=== PATIENT | male | born 1950 | race Caucasian/White ===

== ENCOUNTER 2017-07-28 10:38 | Inpatient (IN) ==
[2017-07-28] MEDS ORDERED: NS 1,000 ML IV ONE ×2 (11:18→13:13)
[2017-07-28 11:29] LABS: MANUAL DIFF NEEDED? NO
--- NOTE | 2017-07-28 11:51 | Diag Imaging Result Doc PS360 ---
EXAM: CHEST-PORTABLE INDICATION: weakness TECHNIQUE: One view COMPARISON: 01/22/2016 FINDINGS: The lungs are grossly clear. There is no discrete pleural fluid collection or pneumothorax. There are stable CABG changes. The cardiomediastinal silhouette and central vasculature are essentially unremarkable, otherwise. IMPRESSION: No evidence of acute pathology by plain radiograph. Electronically signed by Rigoberto Matute 07/28/2017 11:49 AM
[2017-07-28 11:57] LABS: BASO% 0.2 % (0.0-0.8); EOS# 0.07 X1000 (0.0-0.7); EOS% 0.5 % (0.0-10.0); HEMATOCRIT 26.7 % (42.0-52.0); HEMOGLOBIN 8.9 g/dL (14.0-18.0); IMM GRAN# 0.04 X1000 (0.0-0.04); IMM GRAN% 0.3 % (0.0-0.5); LYMPH% 16.1 % (20.5-51.1); MCH 30.6 PG (27-31); MCHC 33.3 g/dL (33-37); MCV 91.8 FL (81-99); MONO% 3.8 % (1.7-9.3); NEUT% 79.1 % (42.2-75.2); PLT 263 X1000 (130-400); RBC 2.91 XMIL (4.7-6.1)
[2017-07-28 11:59] LABS: ALBUMIN 4.3 g/dL (3.5-5.0); MAGNESIUM 2.2 mg/dL (1.5-2.7); POTASSIUM 5.1 mmol/L (3.5-5.1); TOTAL BILIRUBIN 0.2 mg/dL (0.20-1.00); TOTAL PROTEIN 6.6 g/dL (6.3-8.3)
[2017-07-28] MEDS ORDERED: PROTONIX IV ONE (13:00)
[2017-07-28] MEDS ORDERED: SODIUM CHLORIDE 0.9% INJ ONE (13:00)
--- NOTE | 2017-07-28 13:37 | PROVIDER DOCUMENTATION ---
This chart was entered by Rona Macdonald Scribe, acting as scribe for Driss Glez MD. HPI-Abdominal Pain/GI Problem - General Chief Complaint: GI Bleed Stated Complaint: WEAKNESS Time Seen by Provider: 07/28/17 10:54 Source: patient Allergies/Adverse Reactions: Patient Allergies Allergy/AdvReac Type Severity Reaction Status Date / Time No Known Allergies Allergy Verified 07/28/17 11:24 Home Medications: Home Medication List Medication Instructions Recorded Confirmed Last Taken Type ATORVAstatin [Lipitor] 40 mg PO DAILY 07/28/17 07/28/17 Unknown History Carvedilol 12.5 mg PO BID 07/28/17 07/28/17 Unknown History Clopidogrel [Plavix] 75 mg PO DAILY 07/28/17 07/28/17 Unknown History Hydrocodone Bit/Acetaminophen 1 each PO Q8HR 07/28/17 07/28/17 Unknown History [Hydrocodon-Acetaminoph 7.5-325] Lisinopril 10 mg PO DAILY 07/28/17 07/28/17 Unknown History Mirtazapine 30 mg PO DAILY 07/28/17 07/28/17 Unknown History Prazosin [Minipress] 1 mg PO QHS 07/28/17 07/28/17 Unknown History Pregabalin [Lyrica] 50 mg PO TID 07/28/17 07/28/17 Unknown History Trazodone [Desyrel] 100 mg PO BID 07/28/17 07/28/17 Unknown History - History of Present Illness-ABD Nature of Presenting Problems: Pt is a 67 y/o M presents to the ED with abdominal pain and dark stool. Pt states symptoms started last night. Pt states nausea and denies vomit. Pt states he is on a blood thinner. Pt denies hx of dark stool prior. Pt states lightheadedness with standing. Pt states generalized weakness. Abdominal Pain Onset Location: reports: generalized abdomen Pain Radiation: reports: no radiation Quality of Pain: reports: aching Severity in ED: reports: mild Onset/Duration: reports: last night Timing: reports: still present Activities at Onset: reports: light activity Modifying Factors: improves with: nothing Associated Symptoms: reports: nausea, weakness, other (lightheadedness). denies : anxiety, arm pain, back/neck pain, chest pain, constipation, cough, diaphoresis, diarrhea, dizziness, EENT symptoms, fatigue, fever/chills, genitourinary problems, headaches, heartburn, joint pain, loss of appetite, malaise, muscle aches, sinus congestion/drainage, rash, seizure, shortness of breath, sensory/motor loss, pain with inspiration, swelling/mass in abdomen, syncope, vomiting, trouble walking Last BM: last night Dark Stools Present?: reports: tarry Rectal Bleeding: reports: none Rectal Pain: reports: none Emesis Description: reports: none Bruising or Bleeding Gums?: No Similar Symptoms Previously?: Yes (present since last night ) Recently seen or treated by another doctor?: No Review of Systems - Adult - REVIEW OF SYSTEMS - ADULT Constitutional: reports: no symptoms reported Eyes: reports: no symptoms reported Ears, Nose, Mouth & Throat: reports: no symptoms reported Cardiovascular: reports: no symptoms reported Respiratory: reports: no symptoms reported Gastrointestinal: reports: abdominal pain (generalized), nausea, other (black stool). denies: diarrhea, vomiting Genitourinary: reports: no symptoms reported Musculoskeletal: reports: muscle weakness. denies: back pain, joint pain, neck pain Integumentary: reports: no symptoms reported Neurological: reports: no symptoms reported Psychiatric: reports: no symptoms reported Endocrine: reports: no symptoms reported Hematologic/Lymphatic: reports: no symptoms reported Allergic/Immunologic: reports: no symptoms reported All Other Systems: Reviewed and Negative Past History - Adult - PAST MEDICAL HISTORY-ADULT Review of Records: reports: Nursing Assessment Review, Medications Reviewed, Social history reviewed & non-contributory. Major Childhood Illnesses: reports: denies history Cardiovascular: reports: HTN Respiratory: reports: denies history Gastrointestinal: reports: denies history Obstetrical/Gynecological: reports: denies history Genitourinary: reports: denies history Musculoskeletal: reports: other (neuropathy) Neurological: reports: denies history Endocrine/Immune: reports: denies history Other Conditions: reports: denies history - PRIOR SURGERIES/PROCEDURES Surgical/Procedure History: reports: hernia repair, back/neck - IMMUNIZATION STATUS Childhood Immunizations: See Nurse Assessment Flu Vaccine: See Nurse Assessment - FAMILY HISTORY Family History: reviewed, not pertinent - SOCIAL HISTORY Smoking: cigarettes, less than 1 pack/day Provider spent 3-5 mins advising pt. on dangers of tobacco.: Discussed manners to quit use, and f/u contacts for add'l counseling. Substance Use: alcohol Alcohol Use Frequency: occasionally Number of drinks per typical drinking period:: 3-4 drinks Living Situation: family Physical Exam-General - PHYSICAL EXAM-ADULT Initial Vital Signs Reviewed: Yes - CONSTITUTIONAL General Appearance: alert, no apparent distress. negative: lethargic, slow to respond - EYES Eyes: PERRL/EOMI. negative: pale conjunctivae, sunken eyes - HEAD, EARS, NOSE, MOUTH & THROAT HENMT: normocephalic/atraumatic, moist mucous membranes - NECK Neck: normal inspection. negative: lymphadenopathy, tender lateral - RESPIRATORY Respiratory: chest non-tender, lungs clear, normal breath sounds. negative: crackles, rhonchi, increased rate - CARDIOVASCULAR Cardiovascular: regular rate, rhythm. negative: tachycardia, systolic murmur - GASTROINTESTINAL (ABDOMEN) Abdominal Exam: normal bowel sounds, soft, tenderness (generalized). negative: guarding, rebound - GENITOURINARY Rectal Exam: black stool. negative: hemorrhoids, mass - LYMPHATIC Lymphatic: no adenopathy. negative: enlargement, streaking - MUSCULOSKELETAL Back Exam: normal inspection. negative: ecchymosis, swelling Extremity: normal range of motion, normal inspection. negative: deformity, erythema - SKIN Integumentary: normal turgor, warm/dry, pallor. negative: diaphoresis, ecchymosis, erythema, laceration(s), rash - NEUROLOGIC Neurologic: grossly normal. negative: aphasia, facial droop - PSYCHIATRIC Psych/Mental Status: normal mood/affect, oriented x 3. negative: paranoid, tearful Progress - PLAN OF CARE/RESULTS Progress/Plan/Lab Results: Vital Signs - 8 hr 07/28/17 11:05 Temperature 97.3 F L Pulse Rate 106 H Respiratory Rate 20 Blood Pressure 105/63 O2 Sat by Pulse Oximetry 100 Result Diagrams: 07/28/17 10:53 07/28/17 10:53 - EKG 1 Time of EKG reading by physician:: 10:48 EKG Read and Signed by:: Lucrecia Glez EKG Interpretation (*Must complete 3 of following elements*): Abnormal ( possible lateral infarct, age undetermined; inferior infarct, age undetermined) Rate: 112 Rhythm: sinus tachycardia Comments: possible left atrial enlargement; - XRAY 1 XRAY Study: Chest Impression: Normal XRAY Interpretation: No evidence of acute pathology by plain radiograph - CONSULTS/PCP/HOSPITALIST Notification #1 *Consult/PCP/Hospitalist*: CHRISSIE Garcia for Hospitalist Time Discussed: 12:59 (Dr. Mota ) Reason/Comments: Dr. Glez consulted with FRANCIE Garcia about Pt Consult Disposition: Admit Departure - Departure Date of Disposition Decision: 07/28/17 Time of Disposition Decision: 13:00 DIAGNOSIS: GI bleed, Symptomatic anemia Disposition: ADMITTED INPATIENT 09 Certified Medical Emergency: Emergent Condition: Stable Referrals and Follow-Ups: Andres Meyers DO [Primary Care Provider] - - Critical Care Note This patient required my direct & personal management of CC.: Yes Total Time (mins): 30 Critical Care Statement: This patient required my direct personal management to treat or rule out processes, the absence of which, could potentiallly result in sudden, clinically significant life or limb threatening deterioration. Attestation - Physician/ ALEX Attestation Patient care was provided by Advanced Practice Provider:: No The physician spent face to face time with patient:: Yes Advanced Practice Provider documentation review:: Supervising physician onsite and consulted in the evaluation and care of this patient. The physician did have a face to face encounter with the patient. This chart was documented by the indicated scribe, (Rona Macdonald Scribe) and accurately reflects the services I performed and decisions made by me, Lucrecia Glez MD, as attested by the provider's signature.
[2017-07-28] MEDS ORDERED: CARAFATE LIQUID PO SCH (14:00)
--- NOTE | 2017-07-28 14:23 | Diag Imaging Result Doc PS360 ---
EXAM: KUB ABDOMEN INDICATION: gib TECHNIQUE: One view COMPARISON: None. FINDINGS: There are nonspecific bowel gas and stool patterns. There are a few loops of small bowel that are mildly distended with gas at the left side of the abdomen. There are nonspecific. There is no definite large volume free abdominal gas given the limitations of a supine radiograph. There is no evidence of organomegaly. IMPRESSION: Nonspecific mild gaseous distention of a few loops of small bowel as described. Electronically signed by Rigoberto Matute 07/28/2017 2:21 PM
--- NOTE | 2017-07-28 16:44 | HISTORY AND PHYSICAL ---
PRIMARY CARE PROVIDER: Dr. Meyers. CHIEF COMPLAINT: Black tarry stools, lightheadedness. HISTORY OF PRESENT ILLNESS: Mr. Cb Roberts is a 67-year-old male with a medical history of coronary artery disease status post CABG, peripheral arterial disease status post right femoral artery stents, COPD, obstructive sleep apnea, GERD, and hypertension, who apparently also drinks around 2-4 cans of beers per day. He states that yesterday he became very nauseated, started having abdominal cramps, and ended up having a black tarry stool that was very foul smelling. He also had some dizziness and lightheadedness with shortness of breath every time he stood and experienced some chills. Workup revealed that his hemoglobin and hematocrit are 8.9 and 26.7. He had orthostasis when vital signs were check for orthostasis, to the point that his systolic would drop down to the 70s and his heart rate would jump up to the 120s. He has a negative abdominal x-ray for now. We will order an abdominal CT and consult gastroenterology for a planned EGD tomorrow. PAST MEDICAL HISTORY: Coronary artery disease, COPD no home oxygen or breathing treatments, obstructive sleep apnea but does not wear CPAP, GERD, hypertension. PAST SURGICAL HISTORY: Right femoral arterial stents in January 2016 which is when he was started on Plavix, CABG, carpal tunnel surgery on the right wrist, left elbow nerve surgery, cervical spine surgery, lower back surgery x2, and tonsillectomy. SOCIAL HISTORY: Smokes a half pack per day or more since age of 12. Drinks anywhere from 1-4 cans of beer every day. He volunteers or works at the [employer]. FAMILY HISTORY: Brother had a heart attack at age 49, sister 67 but of unknown complications at a hospital. Mother had multiple myeloma but at the age of 91. Father had arthritis and at the age of 50. REVIEW OF SYSTEMS: Fourteen point review of systems were complete and all were negative except for those mentioned in the above HPI. He also has complaints of sinus drainage. ALLERGIES: No known drug allergies. HOME MEDICATIONS: Lipitor 40 mg p.o. daily, Coreg 12.5 mg p.o. twice daily, Plavix 75 mg p.o. daily, hydrocodone acetaminophen 7.5/325 one tablet p.o. every 8 hours, lisinopril 10 mg p.o. daily, mirtazapine 30 mg p.o. daily, Minipress 1 mg p.o. nightly, Lyrica 50 mg p.o. 3 times daily, and trazodone 100 mg p.o. twice daily. PHYSICAL EXAMINATION: VITAL SIGNS: Temperature is 97.3 degrees, heart rate 107, respiratory rate 18, blood pressure 105/47, O2 saturation 98% on 2 L nasal cannula, 5 feet 7 inches tall, 135 pounds , BMI 21.1. Orthostatic vital signs: Supine heart rate 107, blood pressure 93/57. Standing heart rate 121, blood pressure 77/50. Sitting heart rate 110, blood pressure 79/56. GENERAL: Mr. Cb Roberts is a 67-year-old male. He is able answer questions appropriately. He is in no acute distress. NECK: Trachea midline. CARDIOVASCULAR: S1, S2. Tachycardic rate and rhythm. No rubs, gallops, or murmurs. No JVD or carotid bruits noted. Trace lower extremity edema. There are +2 dorsalis and radial pulses. PULMONARY: Clear to auscultate in the upper lobes anteroposteriorly but in the bases is mildly coarse. He has no accessory muscle use or work of breathing noted. He is on 2 L nasal cannula. GI: Soft, nontender, nondistended. Positive bowel sounds x4. EXTREMITIES: Moves all extremities equally. NEUROLOGIC: A O x4. No sensory loss. Cranial nerves intact. He is oriented. SKIN: Warm, dry, intact, and pale. LABORATORY DATA: White blood cells 13,000, hemoglobin 8.9, hematocrit 26.7, platelet count 263,000. Sodium 134, potassium 5.1, BUN 90, creatinine 1.6, glucose 129, magnesium 2.2, bilirubin 0.20, AST 13, ALT 9. ProBNP 633. CK 23. IMAGING: Chest x-ray: No acute findings. Abdominal x-ray: Nonspecific mild gaseous distention of a few loops of small bowel. ASSESSMENT AND PLAN: 1. Upper gastrointestinal bleed without history of upper gastrointestinal bleed and no history of peptic ulcer disease. He takes Plavix at home for the right femoral arterial stents that he has had since January of 2016. Drinks beer on a daily basis, anywhere from 2- 4. Denies any other medications that is harsh on the stomach lining. States that last night he woke up, had stomach cramps, felt very nauseated, and had a bowel movement that was black and tarry. Has been having some dizziness and lightheadedness with shortness of breath since yesterday and when he was checked he had orthostasis. He is not significantly anemic but it is enough for blood transfusion. Will consult gastroenterology, plans for EGD in the morning. We will do clear liquids today and NPO after midnight. Continue with the Protonix drip and oral Carafate. 2. Acute blood loss anemia secondary to upper gastrointestinal bleed. Goal hematocrit is greater than [address] Preston. We will transfuse 1 unit of packed red blood cells. He also wants a platelet aggregate to check for platelet function secondary to the use of Plavix, which we are currently going to hold. 3. Acute kidney injury. He will receive IV fluid hydration. We will recheck in the morning, BUN and creatinine. 4. Coronary artery disease status post coronary artery bypass graft. We will have to hold all antihypertensives for now. Denies any chest pain. 5. Hypertension. Currently he is dealing with orthostatic hypotension. Will hold all antihypertensives and hopefully this will improve with blood transfusion. We can start orthostatic vital signs tomorrow afternoon. 6. Gastroesophageal reflux disease. Continue proton pump inhibitor. 7. Obstructive sleep apnea and chronic obstructive pulmonary disease. No exacerbation and does not wear CPAP at home. Dictated by CHRISSIE Moscoso for Russell Bentley MD Addendum: Patient seen and examined my myself. Agree with CHRISSIE note. It reflects my assessment and plan. Patient admitted for GI bleeding. H/H stable at the time of admission. Will send this patient to ICU and consult GI for emergent endoscopy. Will monitor H/H q6hrs. Will start also Protonix drip. Regarding KRISTA will provide IV lfuids as well. Will hold all antihypertensive medications. Will monitor this patient closely. cc: CHRISSIE Moscoso MD Thomas E. Lockard, DO MTDD
[2017-07-28 17:01] LABS: INR 0.99; PROTIME 10.4 Seconds (9.2-11.7)
--- NOTE | 2017-07-28 17:36 | Diag Imaging Result Doc PS360 ---
EXAM: CT ABDOMEN/PELVIS W/O CONTRAST INDICATION: upper gib TECHNIQUE: Dose reduction protocol was used. COMPARISON: None. FINDINGS: There are a few calcified granulomata in the spleen. There is a calcified stone in the lumen of the gallbladder. The gallbladder appears normal, otherwise. The liver, pancreas, and adrenal glands are unremarkable. There are a few tiny nonobstructing intrarenal stones bilaterally with more on the right. There are no ureteral stones and no hydronephrosis. The urinary bladder is distended and is essentially unremarkable, otherwise. There is uncomplicated sigmoid diverticulosis coli. There are several mildly prominent fluid-filled loops of small bowel with air-fluid levels. The stomach is mildly distended. This is nonspecific. It is probably related to ileus. I suppose a low-grade obstruction is possible. The GI tract is essentially unremarkable, otherwise. There is a prominent left inguinal hernia that contains only fat. There is extensive aortoiliac atherosclerotic disease but there is no evidence of aortic aneurysm. No focal inflammatory changes, free abdominal gas, or free fluid is appreciated. IMPRESSION: 1.A few mildly prominent loops of small bowel and a mildly distended stomach as described that are nonspecific. Please see above discussion. 2.Cholelithiasis. 3.Nonobstructive nephrolithiasis. 4.Other incidental/nonacute findings detailed above. Electronically signed by Rigoberto Matute 07/28/2017 5:34 PM
[2017-07-28 18:26] LABS: HEMATOCRIT 23.8 % (42.0-52.0); HEMOGLOBIN 7.9 g/dL (14.0-18.0)
--- NOTE | 2017-07-28 18:27 | CONSULTATION ---
DATE OF CONSULTATION: 07/28/2017 REFERRING PHYSICIAN: Dr. Portillo PRIMARY CARE DOCTOR: Andres Meyers REASON FOR CONSULTATION: Melena. HISTORY OF PRESENT ILLNESS: Mr. Roberts is a 67-year-old male who was admitted today for melena, lightheadedness. The patient has a history of peripheral arterial disease, is status post right femoral stenting 2 years ago at [facility], history of coronary disease, has COPD, obstructive sleep apnea. He also takes blood thinner, as well as aspirin 81 mg a day, and Plavix 75 mg every day. He noted abdominal discomfort yesterday, along with change in color of stools. He felt weak and dizzy, and seen in the ER. His hemoglobin and hematocrit were 8.9 and 26.7. He was positive for orthostatic hypotension. In the ER, he has been getting 1 unit of blood. He is getting fluids, which have helped his symptoms. He complains of dry heaving and nausea. He has never had an EGD done in the past. He had a colonoscopy done 2 years ago at [facility]. PAST MEDICAL HISTORY: 1. Coronary artery disease. 2. COPD. 3. Obstructive sleep apnea. 4. GERD. 5. Hypertension. 6. Peripheral arterial disease. 7. Chronic smoker. PAST SURGERY HISTORY: 1. Right femoral arterial stent in January 2016, started on Plavix. 2. CABG. 3. Carpal tunnel surgery in the right wrist. 4. Left elbow neurosurgery. 5. Cervical spine surgery. 6. Lower back surgery x2. 7. Tonsillectomy. SOCIAL HISTORY: He smokes half a pack a day for more than 40 years. He drinks 1 to 4 cans of beer every day. 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 FAMILY HISTORY: Brother had a heart attack age 49. Sister 67, of unknown complications in a hospital. Mother had multiple myeloma, age 91. Father had arthritis and age 50. REVIEW OF SYSTEMS: Denies any current fevers, rigors, chills, chest pain, shortness of breath, dyspnea at rest. Denies any genitourinary complaints or neurologic complaints. Does have history of arthritis, and denies any vomiting blood. Did notice dark stools, black in color. Denies noticing any fresh blood in the stools. Denies any nosebleeds or gum bleeding. ALLERGIES: No known drug allergies. MEDICATIONS IN THE HOSPITAL: Include: 1. IV fluids 75 mL/hour. 2. Protonix drip. 3. Carafate 1 g 6 hours. 4. Fluticasone 50 mcg 2 sprays in b.i.d. DIET: He is currently on clear-liquid diet. His aspirin and Plavix have been withheld. OBJECTIVE: Vital signs: Temperature of 98.4 degrees, pulse rate of 107, respiratory rate of 22, blood pressure 101/50, saturating 100% room air. Body weight of 135 pounds, BMI 21.1 k/m2. General Appearance: Thinly built, lying in bed, in no acute distress. HEENT: Pale conjunctivae. No icterus. Pupils equal, react to light. Neck: Supple. Chest: Decreased Breath sounds at the bases. CVS: Tachycardic. Abdomen: Mild discomfort. There is no rebound or guarding. Bowel sounds are present. No hepatosplenomegaly. Extremities: No cyanosis, clubbing, and edema. Neurologic: Alert, awake, oriented. LABORATORIES: Hemoglobin and hematocrit are 8.9 and 26.7, white count of 13.02 , platelet count of 263,000. INR 0.99, PT of 10.4, PTT of 25, INR 0.99. Sodium 132, potassium 5.1 , chloride 101, bicarb 18, anion gap 16, BUN of 90, creatinine 1.6, glucose of 129, calcium 9, magnesium 2.2. Total bilirubin is 0.2, AST 13, ALT 9, alkaline phosphatase is 59. Total protein 6.6, albumin of 4.3. IMAGIN. Abdominal x-ray showing nonspecific mild gaseous distention of a few loops of small bowel. 2. Chest x-ray: No evidence of acute pathology on plain x-ray. 3. CT chest and CT of abdomen and pelvis were done. Findings are currently pending. IMPRESSION/PLAN: 1. Melena. 2. Anemia, secondary to melena. 3. Coronary artery disease, status post coronary artery bypass graft. 4. Peripheral artery disease, status post right-sided femoral stent, on aspirin and Plavix which have been held. 5. Acute kidney injury. 6. Hypertension. 7. Chronic smoker. 8. Daily use of alcohol. 9. Obstructive sleep apnea. 10. Gastroesophageal reflux disease. RECOMMENDATIONS: 1. Will keep a close eye on the patient's vitals and labs. Will check an hemoglobin and hematocrit every 6 hours for 24 hours. We will type and cross, transfuse to keep hematocrit more than 27%. The patient to continue to get IV PPIs, IV fluids, IV antiemetics. We will schedule the patient for EGD in the morning under anesthesia. Because of the patient's use of Plavix, his risk of rebleeding is high. We will check the platelet aggregation study. 2. The patient was counseled to quit alcohol and smoking completely. 3. The patient was also recommended to avoid use of NSAIDs at home. 4. Because of multiple medical comorbid conditions, the patient's risk of the procedure, including EGD, is slightly higher. I discussed that with the patient's family at bedside. The procedure of EGD was explained to the patient and family at bedside, including the risks, benefits, indications, alternatives. 5. Further recommendations to follow, pending hospital course. cc: MD Dr. Nakul Jacobs, DO [place]
[2017-07-28 18:47] LABS: COLLAGEN/ADP PLT AGG 113 Seconds (65-124); COLLAGEN/EPI PLT AGG > 210 Seconds (87-172)
[2017-07-28] MEDS ORDERED: TYLENOL PO PRN (20:39)
[2017-07-28] MEDS ORDERED: ATROVENT NEB INH PRN (20:39)
[2017-07-28] MEDS ORDERED: ZOFRAN IV PRN (20:39)
[2017-07-28] MEDS ORDERED: XOPENEX NEB INH PRN (20:39)
[2017-07-28] MEDS: PROTONIX 80 MG in NS 80 ML IV SCH (21:11)
[2017-07-28] MEDS: NORCO-7.5 PO SCH (23:14)
[2017-07-28] MEDS: LYRICA PO SCH (23:14)
[2017-07-28] MEDS: DESYREL PO SCH (23:16)
[2017-07-29] MEDS ORDERED: NS 250 ML ONE (00:01)
[2017-07-29 02:02] LABS: URINE CULTURE NEEDED? NO; URINE MICRO REVIEW NEEDED? NO; URINE SOURCE CLEAN CATCH
[2017-07-29 02:04] LABS: BILIRUBIN URINE NEGATIVE (NEGATIVE); BLOOD URINE NEGATIVE (NEGATIVE); COLOR YELLOW; GLUCOSE URINE NEGATIVE (NEGATIVE); LEUKOCYTES URINE NEGATIVE (NEGATIVE); NITRITE URINE NEGATIVE (NEGATIVE); PH URINE 5.5; PROTEIN URINE NEGATIVE (NEGATIVE); SP GRAVITY URINE 1.017; TURBIDITY URINE CLEAR (CLEAR); UROBILINOGEN URINE NORMAL (NORMAL)
[2017-07-29 02:05] LABS: UR EPITHELIAL CELLS <10 /HPF (<10); URINE BACTERIA NEGATIVE /HPF; URINE RBC <10 /HPF (<10); URINE WBC <10 /HPF (<10)
[2017-07-29] MEDS: CARAFATE LIQUID PO SCH ×5 (03:12→21:02)
[2017-07-29] MEDS: NORCO-7.5 PO SCH ×3 (04:28→20:32)
[2017-07-29 05:00] LABS: MANUAL DIFF NEEDED? NO
[2017-07-29 05:14] LABS: INR 1.03; PROTIME 10.8 Seconds (9.2-11.7); PTT 25.4 Seconds (22.0-36.0)
[2017-07-29] MEDS: PROTONIX 80 MG in NS 80 ML IV SCH ×3 (05:25→16:40)
[2017-07-29 05:36] LABS: AGAP 11; ALBUMIN 3.7 g/dL (3.5-5.0); ALKALINE PHOSPHATASE 44 U/L (32-122); BUN 53 mg/dL (8-22); CALCIUM 8.3 mg/dL (8.8-10.2); CHLORIDE 108 mmol/L (98-107); COSMO 293; GOT 14 U/L (10-34); GPT 9 U/L (10-44); MAGNESIUM 2.2 mg/dL (1.5-2.7); POTASSIUM 4.5 mmol/L (3.5-5.1); SODIUM 140 mmol/L (136-145); TCO2 21 mmol/L (25-35); TOTAL PROTEIN 5.3 g/dL (6.3-8.3)
[2017-07-29 05:56] LABS: BASO% 0.3 % (0.0-0.8); EOS# 0.05 X1000 (0.0-0.7); EOS% 0.6 % (0.0-10.0); HEMATOCRIT 28.4 % (42.0-52.0); HEMOGLOBIN 9.6 g/dL (14.0-18.0); IMM GRAN# 0.02 X1000 (0.0-0.04); IMM GRAN% 0.3 % (0.0-0.5); LYMPH# 2.32 X1000 (1.2-3.4); LYMPH% 29.1 % (20.5-51.1); MCH 30.7 PG (27-31); MCHC 33.8 g/dL (33-37); MCV 90.7 FL (81-99); MONO# 0.58 X1000 (0.11-0.59); MONO% 7.3 % (1.7-9.3); MPV 11.7 FL (7.4-10.4); NEUT% 62.4 % (42.2-75.2); PLT 164 X1000 (130-400); RBC 3.13 XMIL (4.7-6.1)
--- NOTE | 2017-07-29 06:03 | EKG Report ---
Test Performed on : 07/28/2017 10:48:45 AM Test Reason : reordered/cp Blood Pressure : / mmHG Vent. Rate : 112 BPM Atrial Rate : 112 BPM P-R Int : 160 ms QRS Dur : 088 ms QT Int : 322 ms P-R-T Axes : 069 027 090 degrees QTc Int : 439 ms Sinus tachycardia. Possible Left atrial enlargement Possible Lateral infarct , age undetermined Inferior infarct , age undetermined Abnormal ECG When compared with ECG of 22-JAN-2016 21:01, Borderline criteria for Lateral infarct are now present Inferior infarct is now present T wave inversion no longer evident in Anterior leads Unconfirmed Result
--- NOTE | 2017-07-29 07:36 | EKG Report ---
Test Performed on : 07/29/2017 07:12:25 AM Test Reason : chest pain Blood Pressure : / mmHG Vent. Rate : 092 BPM Atrial Rate : 092 BPM P-R Int : 184 ms QRS Dur : 096 ms QT Int : 360 ms P-R-T Axes : 074 031 108 degrees QTc Int : 445 ms Sinus rhythm. with occasional premature ventricular complexes. Nonspecific T wave abnormality Abnormal ECG When compared with ECG of 28-JUL-2017 10:48, (Unconfirmed) premature ventricular complexes. are now present Borderline criteria for Lateral infarct are no longer present Criteria for Inferior infarct are no longer present Confirmed by Lindsey SALGADO, Fam Duff ([id number]) on 07/29/2017 5:00:59 PM
--- NOTE | 2017-07-29 09:48 | PROGRESS NOTE ---
DATE: 07/29/2017 SUBJECTIVE: The patient reports no more episodes of melena. He denies any chest pain, sensation of palpitation, dizziness, or lightheadedness. OBJECTIVE: Vital Signs: Temperature 97.9 degrees, heart rate 80, respiratory rate 18, blood pressure 130/68, O2 saturation 99% on room air. General: This is a 67-year-old male, lying in bed, in no acute distress. HEENT: Head is normocephalic, atraumatic. Anicteric sclerae and pale conjunctivae. Mucous membranes moist. Neck: Supple. No JVD noted. No carotid bruits. No lymphadenopathy. No thyromegaly. Cardiovascular: S1, S2 heard. No murmurs, gallops, or rubs. Regular rate and rhythm. Respiratory: There is decreased breath sounds globally. Patient is not using any accessory muscles or having work of breathing. Abdomen: Soft, nontender to palpation. Bowel sounds present. No organomegaly. Extremities: No clubbing, cyanosis, or edema. Peripheral pulses present in both legs. Neurological: Patient is alert and oriented x3. Moves 4 extremities. Cranial nerves grossly normal. LABORATORY DATA: White cell count 7.9, hemoglobin 9.6, hematocrit 28.4, platelets 164,000. BMP is shows there is unremarkable except BUN 53. ASSESSMENT AND PLAN: 1. Upper gastrointestinal bleed. Patient denied any more episodes of bleeding. Hemoglobin has dropped overnight, and he was transfused 2 units of blood. So far, the hemoglobin today is 9.6. Dr. Preston from GI has evaluated this patient. Help appreciated. The plan is to do EGD this morning under anesthesia. Because he is on Plavix, platelet-aggregation study has been ordered too. We will see what that exam shows. 2. Anemia of acute blood loss secondary to gastrointestinal bleeding. The patient got transfused 2 units of blood, and hemoglobin is as above. 3. Acute kidney injury most likely related to dehydration, that has completely resolved. 4. Coronary artery disease status post coronary artery bypass graft. All antihypertensive medication has been held for today. We will continue to monitor this patient here in the intensive care unit. 5. Gastroesophageal reflux disease. We will continue with Protonix. 6. Obstructive sleep apnea. Aware. 7. Subclinical chronic obstructive pulmonary disease. The patient is on breathing treatments p.r.n. for shortness of breath. Patient has not been officially diagnosed with this condition. Will recommend to have a pulmonary evaluation as an outpatient. cc: Russell Bentley MD
[2017-07-29] MEDS: DESYREL PO SCH ×2 (10:26→20:33)
[2017-07-29] MEDS: REMERON SOLTAB PO SCH (10:27)
[2017-07-29] MEDS: LIPITOR PO SCH (10:27)
[2017-07-29] MEDS: LYRICA PO SCH ×3 (10:27→16:40)
[2017-07-29] MEDS: FLONASE NAS SCH ×2 (10:27→20:31)
[2017-07-29 10:58] LABS: HEMATOCRIT 29.8 % (42.0-52.0)
[2017-07-29] MEDS ORDERED: ROBINUL ONE (11:37)
[2017-07-29] MEDS ORDERED: DIPRIVAN 1% ONE (11:37)
[2017-07-29] MEDS ORDERED: XYLOCAINE-MPF 2% ONE (11:37)
[2017-07-29] MEDS ORDERED: ZOFRAN ONE (11:38)
--- NOTE | 2017-07-29 13:06 | ECHO REPORT ---
ORDER DATE: 07/29/2017 ECHOCARDIOGRAPHIC MEASUREMENTS: 1. Interventricular septum 1.7. 2. Left ventricular posterior wall 1.5. 3. Diastolic diameter 4.0. 4. Left atrium 4.4. 5. Aorta 3.3. 6. Technically suboptimal study. Poor acoustic window. 7. Normal left ventricular cavity size. Concentric left ventricular hypertrophy. Estimated ejection fraction of 55%. Endocardium not well visualized in all views. 8. Mitral valve was normal. 9. Aortic valve leaflets trileaflet. 10. Pulmonic valve was normal. 11. No aortic stenosis or regurgitation. 12. There is mild mitral regurgitation. 13. Trivial tricuspid regurgitation. 14. Peak velocity across the tricuspid valve was 2.1 m/sec. 15. There is no pericardial effusion or obvious intracardiac mass or thrombus seen. cc: MD Radha Gayle CRNP
--- NOTE | 2017-07-29 15:48 | OPERATIVE NOTE ---
PROCEDURE DATE: 07/29/2017 REQUESTING PHYSICIAN: Juancarlos Corral MD PROCEDURE: Esophagogastroduodenoscopy. PREOPERATIVE DIAGNOSES: 1. Melena. 2. Anemia. 3. History of coronary artery disease status post coronary artery bypass graft. 4. History of peripheral artery disease, status post femoral stents in 2016, on aspirin and Plavix. 5. Chronic obstructive pulmonary disease and chronic smoker. 6. Anemia requiring 3 units of blood transfusion. POSTOPERATIVE DIAGNOSES: 1. Normal esophagus. 2. Z-line was at 40 cm. 3. Evidence of hiatal hernia sliding type 1 cm. 4. Erosive gastritis in the body, antrum. 5. Normal fundus, cardia. 6. Incisura, gastric incisura had a small superficial ulcer measuring about 5-6 mm. 7. Erosive duodenitis in the bulb. 8. Duodenal ulcer in the bulb measuring about less than 5 mm and another 1 cm ulcer at the apex of the duodenal bulb. 9. No evidence of any clots. 10. Normal 2nd portion of duodenum. ESTIMATED BLOOD LOSS: None. COMPLICATIONS: None. ANESTHESIA: Monitored anesthesia care per the anesthesiologist. SPECIMEN: None. DESCRIPTION OF PROCEDURE: After informed consent patient explained the risks, benefits, indications, alternatives of procedure. The patient was prepared for EGD. Patient brought to the OR. He was turned to the left lateral position, a bite block was placed in patient mouth. After adequate monitored anesthesia care, upper scope was introduced through the oral vestibule all the way to the second portion of the duodenum. The esophagus normal entire length. Z-line visualized at 40 cm. There was a 1 cm sliding hiatal hernia. The stomach showed evidence of erythema, erosions in the body suggesting erosive gastritis. Fundus and cardia was normal. On retroflexion, incisura showed evidence of a small superficial gastric ulcer measuring 5-6 cm with no evidence of active bleeding or old blood. The duodenal bulb showed evidence of erythema, erosions suggesting erosive duodenitis of the 2 ulcers in the duodenal bulb, 1 measuring 5 mm and the next measuring 1 cm. They were clean based. They did not have any kind of visible clot. The second portion of duodenum appeared normal. The air was evacuated as the scope withdrawn. There was no evidence of any fresh or old blood on entire EGD. The patient tolerated the procedure, currently monitored in OR in stable condition. RECOMMENDATIONS: 1. The patient will be on Protonix drip for 72 hours and switch to Protonix twice daily. 2. We will watch the patient's hematocrit, type and cross, transfuse if hematocrit more than 25%. 3. We will start him on Iron-C b.i.d. 4. We will start him on Centrum Silver once daily. 5. The patient need a repeat EGD in 3 months. 6. Patient was counseled to quit smoking and avoid NSAIDs. 7. Patient to follow gastroesophageal reflux life changes. 8. The patient is on aspirin and Plavix as an outpatient. We will have to hold them until his hematocrit stabilizes. 9. The patient will return to clinic in 3 months after discharge. 10. Further recommendations pending the hospitalist. cc: MD Juancarlos Jacobs MD Thomas E. Lockard, DO
[2017-07-29 17:07] LABS: HEMATOCRIT 31.4 % (42.0-52.0)
[2017-07-29] MEDS: ICAR-C PO SCH (20:32)
[2017-07-30] MEDS: PROTONIX 80 MG in NS 80 ML IV SCH ×3 (02:35→22:42)
[2017-07-30] MEDS: NORCO-7.5 PO SCH ×3 (04:26→20:38)
[2017-07-30] MEDS: CARAFATE LIQUID PO SCH ×5 (04:26→22:06)
[2017-07-30 05:12] LABS: MANUAL DIFF NEEDED? NO
[2017-07-30 05:22] LABS: BASO% 0.3 % (0.0-0.8); EOS# 0.16 X1000 (0.0-0.7); EOS% 2.5 % (0.0-10.0); HEMATOCRIT 29.7 % (42.0-52.0); HEMOGLOBIN 9.9 g/dL (14.0-18.0); LYMPH# 1.89 X1000 (1.2-3.4); LYMPH% 29.4 % (20.5-51.1); MCH 30.7 PG (27-31); MCHC 33.3 g/dL (33-37); MONO# 0.44 X1000 (0.11-0.59); MONO% 6.9 % (1.7-9.3); MPV 11.3 FL (7.4-10.4); NEUT% 60.9 % (42.2-75.2); PLT 172 X1000 (130-400); RBC 3.23 XMIL (4.7-6.1)
[2017-07-30 05:46] LABS: AGAP 12; BUN 21 mg/dL (8-22); CALCIUM 8.8 mg/dL (8.8-10.2); CHLORIDE 105 mmol/L (98-107); COSMO 283; POTASSIUM 4.4 mmol/L (3.5-5.1); SODIUM 141 mmol/L (136-145); TCO2 24 mmol/L (25-35)
[2017-07-30] MEDS: FLONASE NAS SCH ×2 (08:03→20:37)
[2017-07-30] MEDS: DESYREL PO SCH ×2 (08:04→20:38)
[2017-07-30] MEDS: LYRICA PO SCH ×3 (08:04→16:15)
[2017-07-30] MEDS: LIPITOR PO SCH (08:04)
[2017-07-30] MEDS: CENTRUM SILVER PO SCH (08:04)
[2017-07-30] MEDS: REMERON SOLTAB PO SCH (08:04)
[2017-07-30] MEDS: ICAR-C PO SCH ×2 (08:04→20:38)
--- NOTE | 2017-07-30 08:37 | PROGRESS NOTE ---
DATE: 07/30/2017 SUBJECTIVE: Patient is feeling fine. Denies any more episodes of melena. Actually he is constipated. He denies any abdominal pain, nausea or vomiting. OBJECTIVE: Vital Signs: Temperature 98.1 degrees, heart rate 76, respiratory rate 17, blood pressure 132/65. O2 saturation 98% on room air. General Examination: This is a 59-year-old male, lying in bed, in no acute distress. HEENT: Head is normocephalic, atraumatic. Neck: Supple. No JVD noted. No carotid bruits. No lymphadenopathy. No thyromegaly. Cardiovascular: S1, S2 heard. No murmurs, gallops, or rubs. Regular rate and rhythm. Respiratory: Decreased breath sounds globally. Patient is not using any accessory muscles or having work of breathing. Abdomen: Soft, nontender to palpation. Bowel sounds present. No organomegaly. Extremities: No clubbing, cyanosis, or edema. Peripheral pulses present in both legs. Neurological exam: Patient alert and oriented x3. Moves 4 extremities. LABORATORY DATA: White cell count 6.42, hemoglobin 9.9, hematocrit 29.7, platelets 172,000 with a normal BMP. EGD showed erosive duodenitis, duodenal ulcer in the bowel and also there is a small superficial ulcer in the gastric incisura. ASSESSMENT AND PLAN: 1. Upper gastrointestinal bleeding. The patient has not had any more episodes of bleeding. Hemoglobin is stable so far. He had received 3 units of blood. The patient has been on Protonix for the last 48 hours. At this point, we are going to continue with the same management. Dr. Preston has performed an endoscopy with results as above. The plan is to continue with Protonix drip for 72 hours and then we can switch it to Protonix oral. The patient has been on Plavix, and aspirin. At this point, we have to hold them until the hematocrit stabilizes as per GI recommendation. 2. Anemia of acute blood loss secondary to gastrointestinal bleeding. Three units of blood have been transfused so far. Hemoglobin is stable. 3. Acute kidney injury resolved. 4. Coronary artery disease status post CABG. All antihypertensive medication has been held. Now blood pressure is between 110s and 130s. Upon discharge this patient will need to see a plywood factory worker. Apparently he had an acute coronary syndrome on January 2016 that required surgery and apparently since then he has not been seen by a plywood factory worker. We will need to refer him to a plywood factory worker as an outpatient. 5. Gastroesophageal reflux disease. Patient is on Protonix. 6. Obstructive sleep apnea. The patient is using CPAP at night. 7. Subclinical COPD secondary to a history of heavy smoking. Patient is a current smoker. Patient has been advised to quit. At this point, we just recommend Pulmonary consult as an outpatient and will need most likely to prescribe albuterol inhaler as needed for shortness of breath. 4. Disposition. We are going to move this patient out of the intensive care unit today. cc: Russell Bentley MD MTDD
[2017-07-31 05:30] LABS: MANUAL DIFF NEEDED? NO
[2017-07-31 05:37] LABS: BASO% 0.3 % (0.0-0.8); EOS# 0.15 X1000 (0.0-0.7); EOS% 2.4 % (0.0-10.0); HEMATOCRIT 30.3 % (42.0-52.0); HEMOGLOBIN 10.2 g/dL (14.0-18.0); LYMPH% 22.7 % (20.5-51.1); MCHC 33.7 g/dL (33-37); MCV 92.1 FL (81-99); MONO# 0.46 X1000 (0.11-0.59); MONO% 7.5 % (1.7-9.3); MPV 10.4 FL (7.4-10.4); NEUT% 67.1 % (42.2-75.2); PLT 201 X1000 (130-400); RBC 3.29 XMIL (4.7-6.1)
[2017-07-31] MEDS: CARAFATE LIQUID PO SCH ×4 (05:55→20:59)
[2017-07-31] MEDS: NORCO-7.5 PO SCH ×3 (05:55→20:59)
[2017-07-31 06:02] LABS: AGAP 13; BUN 12 mg/dL (8-22); CALCIUM 8.7 mg/dL (8.8-10.2); CHLORIDE 101 mmol/L (98-107); COSMO 279; POTASSIUM 4.3 mmol/L (3.5-5.1); SODIUM 140 mmol/L (136-145); TCO2 26 mmol/L (25-35)
[2017-07-31] MEDS: LYRICA PO SCH ×3 (08:30→17:02)
[2017-07-31] MEDS: REMERON SOLTAB PO SCH (08:43)
[2017-07-31] MEDS: ICAR-C PO SCH ×2 (08:43→20:59)
[2017-07-31] MEDS: DESYREL PO SCH ×2 (08:43→20:59)
[2017-07-31] MEDS: LIPITOR PO SCH (08:43)
[2017-07-31] MEDS: CENTRUM SILVER PO SCH (08:43)
[2017-07-31] MEDS: FLONASE NAS SCH ×2 (08:44→20:58)
[2017-07-31] MEDS: PROTONIX 80 MG in NS 80 ML IV SCH (08:44)
[2017-07-31] MEDS: PROTONIX IV SCH ×2 (11:43→13:53)
--- NOTE | 2017-07-31 16:49 | PROGRESS NOTE ---
DATE: 07/31/2017 SUBJECTIVE: Today Mr. Roberts referred to be doing much better. He has not had any more melenic stool or hematemesis. No coffee ground emesis. OBJECTIVELY: Vitals: Blood pressure is 142/58, pulse of 88, respiration is 16, temperature 98 degrees. General: Mr. Roberts is a 67-year-old male. He is in bed, not in any distress. HEENT: Mucosa is pink and moist. Anicteric and acyanotic. Neck: Supple. Chest: Clear. Cardiovascular: Regular rate and rhythm. Abdomen: Soft, nontender. Extremities: No pedal edema. MEDICAL EQUIPMENT REPAIRER: Patient is awake, alert, oriented. There is no focal neurological deficit. DIAGNOSTIC DATA: The patient's WBC is 6.17, hemoglobin is 10.2, platelet count of 201,000. Chemistry is also reviewed completely unremarkable. Patient's echocardiogram has also been reviewed. Ejection fraction is 55%. A CT scan of the abdomen and pelvis which was done on presentation showed nonobstructive nephrolithiasis. The patient had an EGD done which showed some evidence of hiatal hernia, sliding type, erosive gastritis. There is a small superficial gastric incisura ulcer. There is erosive gastritis and there is a duodenal ulcer in the bulb measuring about less than 5 mm. ASSESSMENT: 1. Symptomatic anemia on presentation. 2. Anemia secondary to upper gastrointestinal bleed (melena on presentation). 3. Acute kidney injury, improved with hydration. 4. History of coronary artery disease status post CABG. Patient was on double anti-platelet therapy. He had an acute coronary syndrome January 2016 and I think it is over a year, so I think it would be safe to withhold the clopidogrel for now until he follows up with his lining setter. 5. Gastric and duodenal ulcer (peptic ulcer disease). Patient will continue with the PPI drip for 72 hours, after which we will switch that to b.i.d. oral PPI and follow GI recommendations. 6. Tobacco abuse with possible undiagnosed COPD. The patient has been advised smoking cessation. cc: Cayden Watson MD
[2017-08-01] MEDS: PROTONIX IV SCH (00:38)
[2017-08-01] MEDS: CARAFATE LIQUID PO SCH ×2 (05:21→09:38)
[2017-08-01] MEDS: NORCO-7.5 PO SCH ×2 (05:21→12:26)
[2017-08-01 06:14] LABS: MANUAL DIFF NEEDED? NO
[2017-08-01 06:20] LABS: BASO% 0.3 % (0.0-0.8); EOS# 0.16 X1000 (0.0-0.7); EOS% 2.4 % (0.0-10.0); HEMATOCRIT 29.4 % (42.0-52.0); HEMOGLOBIN 9.7 g/dL (14.0-18.0); MCH 30.5 PG (27-31); MCV 92.5 FL (81-99); MONO# 0.61 X1000 (0.11-0.59); MONO% 9.1 % (1.7-9.3); MPV 11.4 FL (7.4-10.4); NEUT% 64.2 % (42.2-75.2); PLT 187 X1000 (130-400); RBC 3.18 XMIL (4.7-6.1)
[2017-08-01 07:01] LABS: AGAP 8; BUN 8 mg/dL (8-22); CALCIUM 9.1 mg/dL (8.8-10.2); CHLORIDE 100 mmol/L (98-107); COSMO 272; POTASSIUM 4.2 mmol/L (3.5-5.1); SODIUM 137 mmol/L (136-145); TCO2 29 mmol/L (25-35)
[2017-08-01 07:45] VITALS: BP 131/57
[2017-08-01] MEDS: REMERON SOLTAB PO SCH (09:38)
[2017-08-01] MEDS: LYRICA PO SCH ×2 (09:38→12:25)
[2017-08-01] MEDS: LIPITOR PO SCH (09:38)
[2017-08-01] MEDS: CENTRUM SILVER PO SCH (09:38)
[2017-08-01] MEDS: DESYREL PO SCH (09:38)
[2017-08-01] MEDS: ICAR-C PO SCH (09:38)
[2017-08-01] MEDS: FLONASE NAS SCH (09:39)
[2017-08-01] MEDS ORDERED: FLUZONE QUAD 2017-2018 SYRINGE IM ONE (11:41)
--- NOTE | 2017-08-01 12:24 | PROGRESS NOTE ---
DATE: 08/01/2017 SUBJECTIVE: The patient resting in bed. He is ready to be discharged. Denies any nausea, vomiting, or vomiting blood. Denies any blood in the stools. He has not moved his bowels today. He is eating well. Denies any fevers, rigors, or chills. OBJECTIVE: Vitals: Temperature 98 degrees, pulse rate 79, respiratory rate 18, blood pressure 130/57, saturating 97% on room air. General: He is well-nourished lying in bed, in no acute distress. HEENT: Pale conjunctivae noted. No icterus. Neck: Supple. Abdomen: Soft, nontender, no guarding. No rebound. Extremities: No cyanosis, clubbing, edema. Neurologic: Alert, awake, and oriented. LABS: His hemoglobin and hematocrit is 9.7 and 29.4. White count 6.6, platelet count of 187,000. Sodium 137, potassium 4.2, chloride 100, bicarb 29, anion gap of 8. BUN of 8, creatinine 0.8, glucose of 91, calcium 9.1. PTT 22.6. IMPRESSION/PLAN: 1. Anemia. Will continue the patient on Iron-C b.i.d. and multi-vitamin once daily for 3 months. 2. Duodenal and ulcers in gastric ulcers. Continue Protonix twice daily for 3 months and then will wean it down to once daily. He will need repeat esophagogastroduodenoscopy in 3 months. 3. The patient will continue on Carafate 1 g 6 hours for 6 weeks. 4. The patient plans to followup with his forestry aid after discharge. At that time, the plan to start his Plavix on the other side. I told him that he can restart his aspirin for now, but if he starts having any active signs of bleeding then he has to present back to the hospital. The patient was counseled to quit alcohol and smoking completely. 5. Above plan discussed with the patient and Dr. Cayden Watson. cc: MD Cayden Jacobs MD Thomas E. Lockard, DO
--- NOTE | 2017-08-01 17:49 | PROGRESS NOTE ---
DATE: 07/31/2017 SUBJECTIVE: The patient is resting in bed. He is feeling better. He denies any nausea, vomiting, vomiting blood or passing blood in the stools. Denies any fevers, rigors, chills. OBJECTIVE: Vital Signs: Temperature 98.3, pulse of 80, respiratory rate 16, blood pressure 147/65, saturating on room air. General Appearance: He is moderately built, moderately nourished, lying in bed in no acute distress. HEENT: No icterus. Neck: Supple. Abdomen: Soft, nontender, nondistended. Bowel sounds. No rebound. Extremities: No cyanosis, clubbing, edema. Neurologic: He is alert, awake, oriented. LABORATORY DATA: Hemoglobin and hematocrit is 10.8 and 30.3, white count 6.17, platelet count 201,000. Sodium 140, potassium 4.2, chloride 101, bicarb 27, anion gap of 13. BUN of 12, creatinine 0.8, glucose of 89. Calcium is 8.7. Blood culture x2 has been negative. Stool for occult blood was positive on admission. IMPRESSION AND PLAN: 1. Duodenal ulcers and gastric ulcers. In this regard, the patient will continue Protonix twice daily for 3 months. We will continue on Carafate 1 g 6 hours for 6 weeks. The patient will need a repeat esophagogastroduodenoscopy in 3 months to document healing of the gastric and duodenal ulcers. 2. Patient has history of coronary artery disease, status post CABG, peripheral artery disease status post femoral stent. He has been on aspirin and Plavix which have been held since admission. Since the patient's hematocrit is stable, we can restart his aspirin for now. The patient wants to follow up with his vascular surgeon, and the heart doctor and, at that time, if his hematocrit stays stable and improved, the patient will discuss the options of resuming these anti-platelet agents. 3. Anemia. Will continue on Iron C b.i.d. MVI daily. 4. Gastroesophageal reflux disease. The patient will continue on Protonix as well. Bowel regimen to continue. 5. Obstructive sleep apnea. He is using CPAP at nighttime. 6. Chronic obstructive pulmonary disease secondary to history of heavy smoking. The patient is again counseled to quit smoking. The patient says that he will not smoke again. 7. Alcoholism. Patient was also counseled to quit drinking completely for now as he has ulcers. The above plan explained to the patient and all questions were answered. cc: MD Russell Jacobs MD Thomas E. Lockard, DO MTDD
[2017-08-01] MEDS ORDERED: PROTONIX PO SCH (21:00)
--- NOTE | 2017-08-02 15:14 | DISCHARGE SUMMARY ---
ADMISSION DATE: 07/28/2017 DISCHARGE DATE: 08/01/2017 CONSULTATIONS: Quoc Preston MD with Gastroenterology. PERTINENT PROCEDURES: 1. Abdomen and pelvis CT showed a few prominent loops of small bowel, mildly distended stomach, cholelithiasis, nonobstructing nephrolithiasis. 2. Echocardiogram showed concentric LVH, EF of 55%. 3. EGD performed by Dr. Preston. DISCHARGE DIAGNOSES: 1. Anemia. The patient will continue on Icar-C multivitamin once daily for 3 months. 2. Duodenal ulcers and gastric ulcers. Continue PPI for 3 months then wean to once daily. The patient will need repeat EGD in 3 months. Continue Carafate 1 g q.6 hours for 6 weeks. Follow up with GI. Patient can resume his aspirin for now but will need to follow up with his nuclear equipment operator to restart his Plavix. If he has any active signs of bleeding, he will need to present back to the hospital. 3. Symptomatic anemia on presentation. Stable. 4. Anemia secondary to GI bleed, none on presentation. Stable. 5. Acute kidney injury improved with hydration. 6. Coronary artery disease status post coronary artery bypass graft. The patient on double antiplatelet therapy. Acute coronary syndrome in January 2016. 7. Tobacco abuse with possible undiagnosed chronic obstructive pulmonary disease. Patient has been advised daily about smoking cessation as well as the means to quit. 8. Alcohol use. The patient has been advised about abstinence. HOSPITAL COURSE: Mr. Roberts is a 67-year-old male who carries a past medical history of coronary artery disease status post CABG, peripheral artery disease status post right femoral artery stent, COPD, obstructive sleep apnea, GERD, hypertension, who drinks 2-4 cans of beer per day. A day before his admission he became very nauseated, started to have abdominal cramping and ended up having black tarry stools that were very foul smelling. He also had some dizziness and lightheadedness with shortness of breath. He appearance and chills. Workup revealed his hemoglobin and hematocrit were 8 and 26. He had orthostasis with vital signs. His original abdominal x-ray was negative. Abdomen and pelvis CT showed prominent loops of small bowel and mildly distended stomach that was nonspecific. He was admitted for an upper GI bleed with a GI consultation. They did clear liquids and NPO after midnight. We started him on a Protonix drip and oral Carafate. We held his aspirin and Plavix with the goal to keep his hematocrit greater than 27. His antihypertensive medications were held. In total he ended up receiving 3 units of blood. He underwent an EGD with Dr. Preston that showed erosive gastritis in the body of the antrum with a small superficial ulcer, erosive duodenitis, duodenal ulcer in the bulb. We recommended Protonix drip for another 72 hours. Continue to monitor his hemoglobin and hematocrit. Continue on Icar-C and centrum Silver daily, repeat EGD in 3 months , smoking cessation, avoid NSAIDs, current lifestyle changes. We will continue to hold his Plavix and aspirin until his hemoglobin and hematocrit stabilizes. He will follow up with Dr. Preston in 3 months after discharge. The patient's hemoglobin and hematocrit has remained stable. Hemodynamically he has remained stable. Dr. Preston would like for him to follow up with Cardiology after discharge. He can go ahead and restart his aspirin but as far as his Plavix he would like for him to speak with his nuclear equipment operator first. Again he has been educated on smoking cessation as well as alcohol abstinence. VITAL SIGNS AT TIME OF DISCHARGE: Temperature is 98 degrees, heart rate 79, respirations 18, blood pressure 131/57, O2 is 96% on room air. DISCHARGE DIET: Full liquid. Advance as tolerated. DISCHARGE MEDICATIONS: 1. Lipitor 40 mg p.o. daily. 2. Coreg 12.5 mg p.o. b.i.d. 3. [place] 7.5/325, 1 each p.o. q.8 hours. 4. Icar-C 1 each p.o. b.i.d. 5. Lisinopril 10 mg p.o. daily. 6. 30 mg p.o. daily. 7. Centrum Silver 1 each p.o. daily. 8. Protonix 40 mg p.o. b.i.d. 9. Minipress 1 mg p.o. at bedtime. 10. Lyrica 50 mg p.o. t.i.d. 11. Carafate 1 g p.o. q.6 hours. 12. Desyrel 100 mg p.o. b.i.d. FOLLOWUP: 1. Mr. Roberts is being discharged home. He will follow up with Dr. Preston in 3 months. He is to follow GERD lifestyle changes. He is to avoid NSAIDs. He has been educated on smoking cessation as well as alcohol abstinence. He can resume his aspirin per Dr. Preston, but he would like him to follow up with his nuclear equipment operator regarding his Plavix. He is to take all medications as prescribed. 2. He can return to the ED for any worsening of symptoms. DISCHARGE TIME: 30 minutes. Dictated by CHRISSIE Tilley for Cayden Watson MD cc: MD Andres Kohler DO MTDD
--- NOTE | 2017-08-03 22:10 | PROGRESS NOTE ---
DATE: 07/30/2017 SUBJECTIVE: The patient is feeling fine. Has no further melenic stools. He did not have any bowel movement. No abdominal pain, nausea, vomiting. OBJECTIVE: Vital Signs: Temperature 98 degrees, heart rate 76, respirations 17, blood pressure 130/60, O2 saturation 98%. General: 67-year-old male lying in bed in no acute distress. HEENT: Normocephalic, atraumatic. No scleral icterus. Mild conjunctival pallor present. Neck: Supple. Trachea midline. Heart: Normal first and second heart sounds. Lungs: Clear except they are decreased. Abdomen: Soft. Nontender. Bowel sounds present and normal. Extremities: No cyanosis, clubbing, edema. Neurologic: Intact. LABORATORY DATA: Hemoglobin and hematocrit stable at 9.9 and 30. IMPRESSION AND PLAN: 1. Upper gastrointestinal bleed from duodenal ulcer. Patient had received 3 units and has not had any bleeding in fact he did not have any bowel movement and will continue to keep him off Plavix and aspirin. 2. Anemia due to acute blood loss stable. 3. Gastrointestinal prophylaxis. 4. Acute kidney injury resolved. 5. Coronary artery disease. 6. Gastroesophageal reflux disease. 7. Chronic obstructive pulmonary disease. 8. Anticoagulation. Will keep him off this until he is stable and after his duodenal ulcer healed will possibly restart him, I have explained this to the patient family. cc: Augie Hamilton MD
== END 2017-08-01 12:48 | disposition home or self-care (01) ==
LOC: ED 10:38 → ICU 20:38 → SUATTDRO 20:38 → ICU 21:55 → 4N 07-30 15:15
PROVIDERS: ATTEND Internal Medicine